=== PATIENT | male | born 1970 | race Caucasian/White ===

== ENCOUNTER → 2017-03-24 | Day surgery (SDC) | payer MEDICAID ==
[~2017-03-24] MED LIST: NS 1,000 ML IV ONE; PROPOFOL/EMULSION 500 MG/50 ML BOTTLE IV ONE; fentaNYL 100 MCG/2 ML INJ ONE
--- NOTE | 2017-03-24 16:42 | EDPHY ---
H & P Stated Complaint: food stuck in throat Time Seen by Provider: 03/24/17 16:42 - Medical/Surgical History Hx Asthma: No Hx Chronic Respiratory Disease: No Hx Diabetes: No Hx Cardiac Disease: No Hx Renal Disease: No Hx Cirrhosis: No Hx Alcoholism: No Hx HIV/AIDS: No Hx Splenectomy or Spleen Trauma: No Other PMH: HTN, schizophrenia/bipolar - Social History Smoking Status: Never smoked Constitutional: Initial Vital Signs Temperature (C) 36.9 C 03/24/17 16:37 Heart Rate 110 H 03/24/17 16:37 Respiratory Rate 18 03/24/17 16:37 Blood Pressure 121/94 H 03/24/17 16:37 O2 Sat (%) 92 03/24/17 16:37 O2 Delivery Mode Simple Mask O2 (L/minute) 10 Allergies/Adverse Reactions: peanuts Allergy (Severe, Uncoded 11/25/15 09:24) Anaphylaxis Home Medications: Medication Instructions Recorded Lisinopril [Zestril 10 mg (RX)] 10 mg PO DAILY 02/17/12 lamoTRIgine [LamICTAL 100 MG (RX)] 100 mg PO 02/17/12 Asenapine Maleate [Saphris] 11/09/13 Medical Decision Making ED Course/Re-evaluation: CHIEF COMPLAINT: Food stuck in esophagus HISTORY OF PRESENT ILLNESS: The patient is a 47 y/o male complaining of food stuck in his esophagus. A few years ago he also had food stuck in his throat and took liquid to force it up. Today around noon he was eating steak, eggs, and toast when he noticed the food wasn't going down any more and he had to stop eating. He waited a few hours and with his saliva he noted steak coming up as well. He is unable to keep his saliva down once swallowing and must spit it out. REVIEW OF SYSTEMS: A 10 point review of systems was performed and is negative with the exception of the elements mentioned in the history of present illness. PHYSICAL EXAM: HR, BP, O2 Sat, RR. Temp noted General Appearance: Alert, well hydrated, appropriate, and non-toxic appearing. Head: Atraumatic without scalp tenderness or obvious injury Eyes: Pupils equal, round, reactive to light and accommodation, EOMI, no trauma , no injection. Ears: Clear bilaterally, no perforation, normal landmarks Nose: Atraumatic, no rhinorrhea, clear. Throat: There is no erythema or exudates, no lesions, normal tonsils, mucus membranes moist. Neck: Supple, 2+ carotid upstroke, nontender, no lymphadenopathy. Respiratory: No retractions, no distress, no wheezes, and no accessory muscle use. Lungs are clear to auscultation bilaterally. Cardiovascular: Regular rate and rhythm, no murmurs, rubs, or gallops. Bilateral carotid, radial, dorsalis pedis, and posterior tibial pulses intact. Good capillary refill all extremities. Gastrointestinal: Abdomen is soft, nontender, non-distended, no masses, no rebound, no guarding, no peritoneal signs. Musculoskeletal: Normal active ROM of all extremities, atraumatic. Neurological: Alert, appropriate, and interactive. The patient has normal DTRs and non-focal cranial nerves, motor, sensory, and cerebellar exam. Skin: No rashes, good turgor, no nodules on palpation. Past medical history: Food stuck in throat a few years ago Past surgical history: Denies Family history: Non-contributory Social history: Works at the [employer], lives in [place], single. DIAGNOSTICS/PROCEDURES/CRITICAL CARE TIME: DIFFERENTIAL DIAGNOSIS: The differential diagnosis for this patient's obstructed esophagus includes but is not limited to food bolus, foreign body, GERD, stricture, and esophogeal cancer. MEDICAL DECISION MAKING: The patient is a 47 y/o male complaining of food stuck in his esophagus. He has had this happen before. He was eating eggs, toast, and steak and when he spits out his saliva he has steak come out too. In the past he was given liquid to force the bolus up. I will consult with GI to determine the best course of action. 1701: I consulted with Dr. Schmitt, Gastroenterology, regarding this patient. He agrees to take the patient for an endoscopy to locate the food bolus. I spoke with GI after the removal of his foreign body. The foreign body removal was successful but the patient does not have a ride home. He will remain in the ED until transportation can be arranged. - Data Points Laboratory Results: Laboratory Results 03/24/17 17:10 03/24/17 17:10 03/24/17 03/24/17 03/24/17 17:10 17:10 17:10 WBC 14.43 10^3/uL H 10^3/uL (3.80-9.50) RBC 5.34 10^6/uL 10^6/uL (4.40-6.38) Hgb 16.4 g/dL g/dL (13.7-17.5) Hct 47.2 % % (40.0-51.0) MCV 88.4 fL fL (81.5-99.8) MCH 30.7 pg pg (27.9-34.1) MCHC 34.7 g/dL g/dL (32.4-36.7) RDW 12.8 % % (11.5-15.2) Plt Count 285 10^3/uL 10^3/uL (150-400) MPV 9.5 fL fL (8.7-11.7) Neut % (Auto) 79.1 % H % (39.3-74.2) Lymph % (Auto) 12.9 % L % (15.0-45.0) [place] % (Auto) 6.4 % % (4.5-13.0) Eos % (Auto) 0.3 % L % (0.6-7.6) Baso % (Auto) 0.7 % % (0.3-1.7) Nucleat RBC Rel Count 0.0 % % (0.0-0.2) Absolute Neuts (auto) 11.41 10^3/uL H 10^3/uL (1.70-6.50) Absolute Lymphs (auto) 1.86 10^3/uL 10^3/uL (1.00-3.00) Absolute Monos (auto) 0.93 10^3/uL H 10^3/uL (0.30-0.80) Absolute Eos (auto) 0.05 10^3/uL 10^3/uL (0.03-0.40) Absolute Basos (auto) 0.10 10^3/uL 10^3/uL (0.02-0.10) Absolute Nucleated RBC 0.00 10^3/uL 10^3/uL (0-0.01) Immature Gran % 0.6 % % (0.0-1.1) Immature Gran # 0.08 10^3/uL 10^3/uL (0.00-0.10) PT 12.9 SEC SEC (12.0-15.0) INR 0.98 (0.83-1.16) APTT 29.4 SEC SEC (23.0-38.0) Sodium 139 mEq/L mEq/L (134-144) Potassium 4.2 mEq/L mEq/L (3.5-5.2) Chloride 104 mEq/L mEq/L (97-110) Carbon Dioxide 22 mEq/l mEq/l (22-31) Anion Gap 13 mEq/L mEq/L (8-16) BUN 16 mg/dL mg/dL (7-23) Creatinine 0.9 mg/dL mg/dL (0.7-1.3) Estimated GFR > 60 Glucose 110 mg/dL H mg/dL (70-100) Calcium 10.4 mg/dL mg/dL (8.5-10.4) Medications Given: Discontinued Medications Sodium Chloride (Ns) 1,000 mls @ 0 mls/hr IV EDNOW ONE; Wide Open PRN Reason: Protocol Stop: 03/24/17 17:03 Last Admin: 03/24/17 17:29 Dose: 1,000 mls Departure - Departure Disposition: To OP Cath/Surgery Clinical Impression: Esophageal obstruction due to food impaction Condition: Fair Report Scribed for: Amol Flor Report Scribed by: Daysi Loza Date of Report: 03/24/17 Time of Report: 17:05
[2017-03-24 17:20] LABS: % IMMATURE GRANULYOCYTES 0.6 % (0.0-1.1); ABSOLUTE IMMATURE GRANULOCYTES 0.08 10^3/uL (0.00-0.10); ADD DIFF? NO; ADD MORPH? NO; ADD SCAN? NO; ATYPICAL LYMPHOCYTE FLAG 0 (0-99); FRAGMENT RBC FLAG 0 (0-99); HEMATOCRIT 47.2 % (40.0-51.0); HEMOGLOBIN 16.4 g/dL (13.7-17.5); LEFT SHIFT FLG 0 (0-99); LIPEMIA HEMOLYSIS FLAG 90 (0-99); MEAN CELL HEMOGLOBIN 30.7 pg (27.9-34.1); MEAN CELL HEMOGLOBIN CONCENTR. 34.7 g/dL (32.4-36.7); MEAN CELL VOLUME 88.4 fL (81.5-99.8); MEAN PLATELET VOLUME 9.5 fL (8.7-11.7); PLATELET CLUMPS FLAG 0 (0-99); PLATELET COUNT 285 10^3/uL (150-400); RED BLOOD CELL COUNT 5.34 10^6/uL (4.40-6.38); RED CELL DISTRIBUTION WIDTH 12.8 % (11.5-15.2)
[2017-03-24 17:25] LABS: APTT 29.4 SEC (23.0-38.0); INR 0.98 (0.83-1.16); PROTIME(PATIENT) 12.9 SEC (12.0-15.0)
[2017-03-24 17:29] LABS: ANION GAP 13 mEq/L (8-16); CALCIUM 10.4 mg/dL (8.5-10.4); CARBON DIOXIDE 22 mEq/l (22-31); CHLORIDE 104 mEq/L (97-110); CREATININE 0.9 mg/dL (0.7-1.3); GLOMERULAR FILTRATION RATE > 60; GLUCOSE 110 mg/dL (70-100); POTASSIUM 4.2 mEq/L (3.5-5.2); SODIUM 139 mEq/L (134-144)
--- NOTE | 2017-03-24 19:10 | GIREPORT ---
[facility] Surgical Services - Endoscopy Department Patient Name: Viktor Miller Procedure Date: 03/24/2017 6:20 PM Patient Type: Emergency Department Attending MD/ ER Physician: Tha Schmitt MD Procedure: Upper GI endoscopy Indications: Dysphagia, Foreign body in the esophagus Providers: Tha Schmitt MD Medicines: General Anesthesia Complications: No immediate complications. Description of Procedure: After obtaining informed consent, the endoscope was passed under direct vision. Throughout the procedure, the patient's blood pressure, pulse, and oxygen saturations were monitored continuous ly. The Endoscope was introduced through the mouth, and advanced to the second part of duodenum. The upper GI endoscopy was somewhat difficult due to stricture. Successful completion of the procedu re was aided by Anesthesia staff assisting with sedation. The patient tolerated the procedure well. Findings: Food (a large steak bolus) was found in the middle third of the esophagus. Removal of food was accomplished with both a small oval snare and a rescue net for retrieval of the steak bolus. One severe benign-appearing, intrinsic stenosis was found 30 cm from the incisors. This measured 1 cm (inner diameter) x 2 cm (in length) and was traversed after dilation. A TTS dilator was passed through the scope. Dilation with a 15-16.5-18 mm balloon dilator was performed to 16.5 mm. Bilious fluid was found in the stomach. The in the stomach was normal. The examined duodenum was normal. Estimated Blood Loss: Estimated blood loss: none. Post Op Diagnosis: - Food in the middle third of the esophagus. Removal was successful. - Benign-appearing esophageal stenosis. Dilated. - Bilious gastric fluid. - Normal stomach. - Normal examined duodenum. - The cause for the food impaction (which was a large piece of steak) w as an esophageal stricture at the junction of the middle and lower third of t he esophagus. The food bolus was removed and the stricture dilated. Recommendation: - Mechanical soft diet. - Masticate (chew) your food well please before swallowing. - Use Protonix (pantoprazole) 40 mg PO BID. - Repeat upper endoscopy in 2 weeks for retreatment. - No aspirin, ibuprofen, naproxen, or other non-steroidal anti-inflamma tory drugs. - Return patient to the ER for possible discharge same day. - Patient has a contact number available for emergencies. The signs and symptoms of potential delayed complications were discussed with the pat ient. Return to normal activities tomorrow. Written discharge instructions we re provided to the patient. - Thank you for allowing me to be involved in the care of your patient. Attending Participation: I personally performed the entire procedure without the assistance of a fellow, resident or surg ical nutrition assistant. Tha Schmitt MD Tha Schmitt MD 03/24/2017 7:10:37 PM Number of Addenda: 0 Note Initiated On: 03/24/2017 6:20 PM [email or web address]
[2017-03-24 20:50] VITALS: BP 129/82; PULSE 72; RESP 18; TEMP 98.1; O2SAT 99
== END | disposition home or self-care (01) ==
LOC: FSGY 18:20
PROVIDERS: ATTEND Internal Medicine Gastroenterology
PROC: 0DC28ZZ Extirpation of Matter from Middle Esophagus, Via Natural or Artificial Opening Endoscopic (ICD-10-PCS; principal; 2017-03-24 17:30)
DX: T18.128A Food in esophagus causing other injury, initial encounter (principal)
CPT/HCPCS: 43247; C1726; J2704; J3010

== ENCOUNTER 2017-04-08 13:57 | Day surgery (SDC) | payer MEDICAID ==
[2017-04-08] MEDS ORDERED: LR 1,000 ML IV ONE (14:14)
[2017-04-08 14:24] VITALS: PULSE 67
--- NOTE | 2017-04-08 15:21 | PDANEPAE ---
ANE History of Present Illness dysphagia ANE Past Medical History - Cardiovascular History Hx Hypertension: Yes Hx Arrhythmias: No Hx Chest Pain: No Hx Coronary Artery / Peripheral Vascular Disease: No Hx CHF / Valvular Disease: No Hx Palpitations: No - Pulmonary History Hx COPD: No Hx Asthma/Reactive Airway Disease: No Hx Recent Upper Respiratory Infection: No Hx Oxygen in Use at Home: No Hx Sleep Apnea: No Sleep Apnea Screening Result - Last Documented: Negative - Neurologic History Hx Cerebrovascular Accident: No Hx Seizures: No Hx Dementia: No - Endocrine History Hx Diabetes: No - Renal History Hx Renal Disorders: No - Liver History Hx Hepatic Disorders: No - Neurological & Psychiatric Hx Hx Neurological and Psychiatric Disorders: Yes Neurological / Psychiatric History Comment: s - Cancer History Hx Cancer: No - Congenital Disorder History Hx Congenital Disorders: No - GI History Hx Gastrointestinal Disorders: Yes Gastrointestinal History Comment: gerd reflux - Other Health History Other Health History: none - Surgical History Prior Surgeries: none ANE Review of Systems Review of systems is: negative Review of Systems: - Exercise capacity Exercise capacity: >=4 METS METS (RN): 5 METS ANE Patient History - Allergies Allergies/Adverse Reactions: peanuts Allergy (Severe, Uncoded 11/25/15 09:24) Anaphylaxis - Home Medications Home Medications: Lisinopril [Zestril 10 mg (RX)] 10 mg PO DAILY 02/17/12 [Last Taken 04/07/17 19: 00] lamoTRIgine [LamICTAL 100 MG (RX)] 100 mg PO 02/17/12 [Last Taken 04/07/17 19:00 ] Asenapine Maleate [Saphris] 11/09/13 [Last Taken 04/07/17 19:00] - NPO status NPO Status: no food or drink >8 hours NPO Since - Liquids (Date): 04/07/17 NPO Since - Liquids (Time): 22:00 NPO Since - Solids (Date): 04/07/17 NPO Since - Solids (Time): 22:00 - Anes Hx Anes Hx: no prior problems - Smoking Hx Smoking Status: Never smoked Marijuana use: Yes - Alcohol Use Alcohol Use: Heavy - Family Anes Hx Family Hx Anesthesia Complications: none ANE Labs/Vital Signs - Vital Signs Vital Signs: reviewed preoperatively; see RN documention for details Blood Pressure: 116/77 Heart Rate: 67 Respiratory Rate: 16 O2 Sat (%): 98 Height: 172.72 cm Weight: 77.111 kg ANE Physical Exam - Airway Mallampati Score: Class 2 Mouth exam: normal dental/mouth exam - Pulmonary Pulmonary: no respiratory distress - Cardiovascular Cardiovascular: regular rate and rhythym - ASA Status ASA Status: III ANE Anesthesia Plan Anesthesia Plan: GA with mask
[2017-04-08] MEDS ORDERED: PROPOFOL/EMULSION 500 MG/50 ML BOTTLE IV ONE (15:27)
[2017-04-08] MEDS ORDERED: LIDOCAINE 2% 5 ML SDV ONE ×2 (15:27→16:34)
--- NOTE | 2017-04-08 16:22 | PDGENHP ---
History & Physical Chief Complaint: Dysphagia History of Present Illness: History of food bolus impaction with removal. Repeat EGD for evaluation Pertinent Past, Social, Family History: No ETOH. No tobacco. No FH of esophageal cancer Relevant Physical Exam: NAD. CTA B/L. RRR without m/r/g. ABD soft. NABS. NT/ ND. No R/G Cardiorespiratory Assessment: ASA II. Dysphagia. Previous esophageal dilation. Prior food impaction with endoscopic removal
[2017-04-08] MEDS ORDERED: PROPOFOL 200 MG/20 ML VIAL ONE ×2 (16:34)
[2017-04-08] MEDS ORDERED: ACETAMINOPHEN 500 MG TAB PO PRN (16:48)
[2017-04-08] MEDS ORDERED: ONDANSETRON 4 MG/2 ML VIAL IVP PRN (16:48)
[2017-04-08] MEDS ORDERED: ALBUTEROL 3 ML DEYVIAL IH PRN (16:48)
[2017-04-08] MEDS ORDERED: NALOXONE HCL 0.4 MG/ML INJ IVP PRN (16:48)
--- NOTE | 2017-04-08 16:48 | GIREPORT ---
[facility] - Endoscopy Department Patient Name: Viktor Miller Procedure Date: 04/08/2017 4:18 PM Patient Type: Outpatient Attending MD/ ER Physician: Tha Schmitt MD Procedure: Upper GI endoscopy Indications: Dysphagia, Stricture of the esophagus Providers: Tha Schmitt MD Medicines: Propofol per Anesthesia Complications: No immediate complications. Description of Procedure: After obtaining informed consent, the endoscope was passed under direct vision. Throughout the procedure, the patient's blood pressure, pulse, and oxygen saturations were monitored continuously. The Endoscope was intro duced through the mouth, and advanced to the second part of duodenum. [facility] er GI endoscopy was accomplished without difficulty. The patient tolerated th e procedure well. Findings: A few moderate benign-appearing, intrinsic stenoses were found in the l ower third of the esophagus. The narrowest stenosis measured 1.1 cm (inner diameter) and they were traversed. A guidewire was placed and the scope was withdrawn. Dilation was performed with a Savary dilator with mild resis tance at 48 Fr. Mucosal changes including ringed esophagus and longitudinal furrows wer e found in the middle third of the esophagus and in the lower third of th e esophagus. Biopsies were obtained from the proximal and distal esophagu s with cold forceps for histology of suspected eosinophilic esophagitis. The stomach was normal. The examined duodenum was normal. Estimated Blood Loss: Estimated blood loss: none. Post Op Diagnosis: - Benign-appearing esophageal stenoses. Dilated. - Esophageal mucosal changes suggestive of eosinophilic esophagitis. Biopsied. - Normal stomach. - Normal examined duodenum. Recommendation: - Use Prilosec (omeprazole) 40 mg PO daily. - Mechanical soft diet. - Repeat upper endoscopy PRN for retreatment. - Patient has a contact number available for emergencies. The signs and symptoms of potential delayed complications were discussed with the pat ient. Return to normal activities tomorrow. Written discharge instructions we re provided to the patient. - Thank you for allowing me to be involved in the care of your patient. Attending Participation: I personally performed the entire procedure without the assistance of a fellow, resident or surg ical assistant toddler teacher. Tha Schmitt MD Tha Schmitt MD 04/08/2017 4:47:56 PM This report has been signed electronicallyDavid MD Keshia Number of Addenda: 0 Note Initiated On: 04/08/2017 4:18 PM [email or web address]
--- NOTE | 2017-04-08 16:50 | POSTANESTH ---
Post Anesthetic Evaluation Cardiovascular Status: Normal, Stable Respiratory Status: Normal, Stable Level of Consciousness/Mental Status: Can Participate in Eval Pain Control: Adequate, Prn Tx Ordered Nausea/Vomiting Control: Adequate, Prn Tx Ordered Complications Possibly Related to Anesthesia: None Noted
[2017-04-08 17:18] VITALS: TEMP 98.1
[2017-04-08 17:46] VITALS: RESP 16
[2017-04-08 23:13] VITALS: BP 112/81; O2SAT 87
== END 2017-04-08 18:00 | disposition home or self-care (01) ==
LOC: FSGY 13:57
PROVIDERS: ATTEND Internal Medicine Gastroenterology
PROC: 0DB28ZX Excision of Middle Esophagus, Via Natural or Artificial Opening Endoscopic, Diagnostic (ICD-10-PCS; principal; 2017-04-08 15:30)
PROC: 0D738ZZ Dilation of Lower Esophagus, Via Natural or Artificial Opening Endoscopic (ICD-10-PCS; principal; 2017-04-08 15:30)
PROC: 0DB38ZX Excision of Lower Esophagus, Via Natural or Artificial Opening Endoscopic, Diagnostic (ICD-10-PCS; principal; 2017-04-08 15:30)
DX: K22.2 Esophageal obstruction (principal); R13.10 Dysphagia, unspecified; T18.128D Food in esophagus causing other injury, subsequent encounter; K21.9 Gastro-esophageal reflux disease without esophagitis; Z80.0 Family history of malignant neoplasm of digestive organs
CPT/HCPCS: J2704

== ENCOUNTER 2018-03-28 09:03 | Emergency (ER) | payer MEDICAID ==
[2018-03-28 09:09] VITALS: BP 114/86
--- NOTE | 2018-03-28 09:21 | EDPHY ---
H & P Time Seen by Provider: 03/28/18 09:20 HPI/ROS: CHIEF COMPLAINT: Left ear pain HISTORY OF PRESENT ILLNESS: Patient is a 48-year-old male here with left ear pain for the last day. He states he has had trouble with cerumen impaction before and was trying to clean his ear yesterday and has had pain since he. He states he was using his fingernail to tried remove wax from his ear. He denies any bloody drainage or hearing loss. ROS As detailed in HPI Smoking Status: Never smoked Physical Exam: General: Alert and oriented. Nontoxic appearing. No acute distress HEENT: Pupils PERRLA. No oral lesions. Cerumen impaction to the bilateral ear canals. I am able to visualize proximal half of the left tympanic membrane which is rothman and non erythematous. He does have a superficial abrasion to the most superficial aspect of the external auditory meatus. Cardiopulmonary: Regular rate and rhythm. No lower extremity edema Skin: [place] warm and dry. No lesions. Muscle skeletal: Moving all 4 extremities. Equal strength in upper extremities and lower extremities. Ambulatory. Constitutional: Initial Vital Signs Temperature (C) 36.7 C 03/28/18 09:07 Heart Rate 85 03/28/18 09:07 Respiratory Rate 16 03/28/18 09:07 Blood Pressure 114/86 H 03/28/18 09:07 O2 Sat (%) 96 03/28/18 09:07 O2 Delivery Mode Room Air Allergies/Adverse Reactions: peanuts Allergy (Severe, Uncoded 03/28/18 09:06) Anaphylaxis Home Medications: Medication Instructions Recorded Lisinopril [Zestril 10 mg (RX)] 10 mg PO DAILY 02/17/12 lamoTRIgine [LamICTAL 100 MG (RX)] 100 mg PO 02/17/12 Asenapine Maleate [Saphris] 11/09/13 Medical Decision Making Differential Diagnosis: Otitis externa, otitis media, mastoiditis, perforated tympanic membrane, foreign body Departure - Departure Disposition: Home, Routine, Self-Care Clinical Impression: Impacted cerumen of both ears, Abrasion of ear Condition: Good Instructions: Cerumen Impaction (ED) Additional Instructions: For chief his Debrox at any drug sore or pharmacy. He uses as directed for the next 5 days to clear the wax out of the ears. The abrasion on ear should heal without any treatment. Referrals: Abbey Vance MD [Primary Care Provider] - As per Instructions
== END 2018-03-28 09:28 | disposition home or self-care (01) ==
DX: H61.23 Impacted cerumen, bilateral (principal); S00.412A Abrasion of left ear, initial encounter; Y93.E8 Activity, other personal hygiene; Y99.8 Other external cause status